=== PATIENT | female | born 1960 | race African-American/Black ===

== ENCOUNTER → 2016-09-30 | Day surgery (SDC) | payer OTHER ==
[~2016-09-30] MED LIST: AMLODIPINE BESYL5 MG PO; IBUPROFEN PO; PREMARIN0.625 MG PO; VIT E PO
--- NOTE | ~2016-09-30 | OR ---
Unit #: [id number] #: [id number] Patient: BRANDON PHELPS [id number] [address] [address] [id number] O MR#: [id number] NAME: BRANDON PHELPS ROOM: Date of Procedure: 09/30/2016 Admission Date: 09/30/2016 Surgeon: Garth Conroy M.D. : 1960 Attending Physician: Garth Conroy M.D. OPERATIVE REPORT PROCEDURE PERFORMED Colonoscopy to cecum. INDICATIONS FOR PROCEDURE History of colon polyps in the past. MEDICATIONS Monitored anesthesia. POSTOPERATIVE FINDINGS 1. Normal exam to cecum. 2. Good prep. PLAN Repeat colonoscopy in 5 to 10 years. DESCRIPTION OF PROCEDURE The patient was explained of the procedure, risks, and benefits along with the risks and benefits of anesthesia. She was brought to the endoscopy room. Propofol anesthesia was given. Rectal exam was done, which was normal. Colonoscope was lubricated, passed up the rectum, advanced under direct vision all the way to the cecum. Cecum was identified by ileocecal valve and appendiceal orifice. I then started to pull the scope out carefully looking. No polyps, masses, or colitis was seen. Mucosa was normal and healthy. I retroflexed in the rectum, internal hemorrhoids noted. Gently, I pulled the scope out of the patient's body. She tolerated it well. Dictated by... Tanya Tyler/jd TD: 09/30/2016 15:38 JOB #: [id number] Unit #: [id number] #: [id number] Patient: BRANDON PHELPS OPERATIVE REPORT Page 1 of 1 X Garth Conroy MD X PROCEDURE OPERATIVE NOTE
== END | disposition home or self-care (01) ==
LOC: COPS 09:32
DX: Z12.11 Encounter for screening for malignant neoplasm of colon (principal); K64.8 Other hemorrhoids; I10 Essential (primary) hypertension; Z86.010 Personal history of colon polyps; Z79.899 Other long term (current) drug therapy; Z90.710 Acquired absence of both cervix and uterus
CPT/HCPCS: J2250